=== PATIENT | female | born 1995 | race Caucasian/White ===

== ENCOUNTER 2021-03-22 10:30 | Emergency (ER) | payer OTHER ==
--- NOTE | 2021-03-22 11:33 | EDM.PDOC ---
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, at 9:30a she had epigastric pain that got worse, up to 8/10 for 10 minutes, took no meds for it, was sweaty when pain was the worst, no radiation, no n/v, no other sxs has had 3 previous episodes, most recently 6m ago, pt thinks it may be her GB only med warfarin pt had COVID in Jun with minimal sxs, "like a bad cold" 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 in October, was in [facility] for 20d, in ICU x 8d, had tubes draining both legs, had daily procedures to remove clots 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, has f/u with heme-onc in one year took no meds for pain today, feeling much better now, 2-3/10, epigastrium NT, no RUQ pain/tender Upper Mid-Anterior Abdomen Pain Score (Numeric/FACES): 4 - Related Data Allergies Allergy/AdvReac Type Severity Reaction Status Date / Time acetaminophen [From Vicodin] Allergy Nausea Verified 03/22/21 10:43 hydrocodone [From Vicodin] Allergy Nausea Verified 03/22/21 10:43 Home Meds: Home Meds Ferrous Sulfate [Iron] 325 mg PO BID #100 tablet 03/22/21 [Rx] Warfarin [Coumadin] 5 mg PO DAILY 03/22/21 [History] Past Medical History Cardiovascular History: Reports: Blood Clots/VTE/DVT Social & Family History - Family History Family Medical History: No Pertinent Family History - Tobacco Use Tobacco Use Status *Q: Unknown Ever Used Tobacco - Caffeine Use Caffeine Use: Reports: Coffee ED ROS GENERAL - Review of Systems Review Of Systems: See Below Constitutional: Reports: No Symptoms HEENT: Reports: No Symptoms Respiratory: Reports: No Symptoms Cardiovascular: Reports: No Symptoms Endocrine: Reports: No Symptoms GI/Abdominal: Reports: No Symptoms : Reports: No Symptoms Musculoskeletal: Reports: No Symptoms Skin: Reports: No Symptoms Neurological: Reports: No Symptoms Psychiatric: Reports: No Symptoms Hematologic/Lymphatic: Reports: No Symptoms Immunologic: Reports: No Symptoms ED EXAM, GI/ABD - Physical Exam Exam: See Below Exam Limited By: No Limitations General Appearance: Alert, WD/WN, No Apparent Distress Throat/Mouth: Normal Inspection, Normal Voice, No Airway Compromise Head: Atraumatic, Normocephalic Neck: Normal Inspection, Supple, Non-Tender, Full Range of Motion. No: Lymphade nopathy (R), Lymphadenopathy (L) Respiratory/Chest: No Respiratory Distress, Lungs Clear, Normal Breath Sounds, Chest Non-Tender Cardiovascular: Regular Rate, Rhythm, No Edema, No Murmur GI/Abdominal Exam: Soft, Non-Tender, No Organomegaly, No Distention, Other (nontender to deep palpation at epigastrium and Garcia's point) Extremities: Normal Inspection, Normal Range of Motion, Non-Tender, No Pedal Edema Neurological: Alert, Oriented, CN II-XII Intact, Normal Cognition, Normal Gait, No Motor/Sensory Deficits Psychiatric: Normal Affect, Normal Mood Skin Exam: Warm, Dry, Intact, Normal Color, No Rash Lymphatic: No Adenopathy Course - Vital Signs Last Recorded V/S: Last Vital Signs Temp 36.4 C 03/22/21 10:40 Pulse 81 03/22/21 10:40 Resp 18 03/22/21 10:40 BP 130/91 H 03/22/21 10:40 Pulse Ox 96 03/22/21 10:40 - Orders/Labs/Meds Labs: Laboratory Tests 03/22/21 03/22/21 03/22/21 Range/Units 11:50 11:50 11:50 WBC 8.1 (3.0-10.3) x10-3/uL RBC 4.32 (3.60-5.20) x10(6)uL Hgb 10.2 L (11.4-15.5) g/dL Hct 32.6 L (34.2-48.2) % MCV 75.5 L (76.7-100.5) fL MCH 23.5 L (23.9-33.9) pg MCHC 31.2 L (31.9-34.8) g/dL RDW 16.0 (12.3-16.5) % Plt Count 231 (151-488) x10(3)uL MPV 8.1 (7.1-12.4) fL Neut % (Auto) 78.4 H (30.8-76.2) % Lymph % (Auto) 16.0 L (18.4-52.1) % [place] % (Auto) 4.7 (4.4-15.7) % Eos % (Auto) 0.4 L (0.6-8.1) % Baso % (Auto) 0.5 (0.2-1.5) % Neut # (Auto) 5.7 (1.5-6.3) x10-3/uL Lymph # (Auto) 1.2 (1.0-4.4) x10-3/uL [place] # (Auto) 0.3 (0.3-1.0) x10-3/uL Eos # (Auto) 0.0 (0.0-0.8) x10-3/uL Baso # (Auto) 0.0 (0.0-0.1) x10-3/uL PT 22.5 H (9.0-11.1) sec INR 2.19 H (1.00-1.24) Sodium 140 (135-145) mmol/L Potassium 4.2 (3.5-5.3) mmol/L Chloride 103 (100-110) mmol/L Carbon Dioxide 28 (21-32) mmol/L BUN 18 (7-18) mg/dL Creatinine 0.8 (0.55-1.02) mg/dL Est Cr Clr Drug Dosing 96.73 mL/min Estimated GFR (MDRD) > 60 (>60) BUN/Creatinine Ratio 22.5 H (9-20) Glucose 90 (80-116) mg/dL Calcium 8.7 (8.6-10.2) mg/dL Total Bilirubin 0.2 (0.1-1.3) mg/dL AST 18 (5-25) IU/L ALT 20 (12-36) U/L Alkaline Phosphatase 81 (56-112) IU/L C-Reactive Protein (0.5-0.9) mg/dL Total Protein 8.0 (6.0-8.0) g/dL Albumin 3.4 L (3.5-5.2) g/dL Globulin 4.6 g/dL Albumin/Globulin Ratio 0.7 // Range/Units 11:50 WBC (3.0-10.3) x10-3/uL RBC (3.60-5.20) x10(6)uL Hgb (11.4-15.5) g/dL Hct (34.2-48.2) % MCV (76.7-100.5) fL MCH (23.9-33.9) pg MCHC (31.9-34.8) g/dL RDW (12.3-16.5) % Plt Count (151-488) x10(3)uL MPV (7.1-12.4) fL Neut % (Auto) (30.8-76.2) % Lymph % (Auto) (18.4-52.1) % [place] % (Auto) (4.4-15.7) % Eos % (Auto) (0.6-8.1) % Baso % (Auto) (0.2-1.5) % Neut # (Auto) (1.5-6.3) x10-3/uL Lymph # (Auto) (1.0-4.4) x10-3/uL [place] # (Auto) (0.3-1.0) x10-3/uL Eos # (Auto) (0.0-0.8) x10-3/uL Baso # (Auto) (0.0-0.1) x10-3/uL PT (9.0-11.1) sec INR (1.00-1.24) Sodium (135-145) mmol/L Potassium (3.5-5.3) mmol/L Chloride (100-110) mmol/L Carbon Dioxide (21-32) mmol/L BUN (7-18) mg/dL Creatinine (0.55-1.02) mg/dL Est Cr Clr Drug Dosing mL/min Estimated GFR (MDRD) (>60) BUN/Creatinine Ratio (9-20) Glucose (80-116) mg/dL Calcium (8.6-10.2) mg/dL Total Bilirubin (0.1-1.3) mg/dL AST (5-25) IU/L ALT (12-36) U/L Alkaline Phosphatase (56-112) IU/L C-Reactive Protein 1.5 H (0.5-0.9) mg/dL Total Protein (6.0-8.0) g/dL Albumin (3.5-5.2) g/dL Globulin g/dL Albumin/Globulin Ratio Departure - Departure Time of Disposition: 12:43 Disposition: Home, Self-Care 01 Condition: Good Clinical Impression: Epigastric pain, Hypochromic microcytic anemia - Discharge Information *PRESCRIPTION DRUG MONITORING PROGRAM REVIEWED*: Not Applicable *COPY OF PRESCRIPTION DRUG MONITORING REPORT IN PATIENT FRANKLYN: Not Applicable Prescriptions: Ferrous Sulfate [Iron] 325 mg PO BID #100 tablet Instructions: Biliary Colic, Adult, Heartburn Forms: ED Department Discharge Additional Instructions: It is likely that the pain in your upper mid abdomen is coming from acid in the stomach. However, gallbladder pain (biliary colic) is still a consideration. If you have additional pain, immediately drink liquid antacid 2 tablespoons (30 ml) to see if it helps. Take acetaminophen 500 mg 2 tabs every 6 hours as needed for pain. To replace iron and increase your hemoglobin, take iron 325 mg 1 tab 2 times a day for 3 months. You may take a stool softener at the same time. Return to hospital for a gallbladder ultrasound. See your doctor in 4-5 days for further recommendations. Return to Emergency Department if you fell worse. Sepsis Event Note (ED) - Evaluation Sepsis Screening Result: No Definite Risk - Focused Exam Vital Signs: Vital Signs Temp Pulse Resp BP Pulse Ox 03/22/21 10:40 36.4 C 81 18 130/91 H 96
== END 2021-03-22 13:00 | disposition home or self-care (01) ==
LOC: FB.ED 10:30
DX: D50.9 Iron deficiency anemia, unspecified (principal); R10.13 Epigastric pain; Z86.16 Personal history of COVID-19; Z88.6 Allergy status to analgesic agent; Z88.5 Allergy status to narcotic agent
CPT/HCPCS: 36415; 80053; 85025; 85610; 86140; 99284

== ENCOUNTER 2021-05-08 14:49 | Emergency (ER) | payer OTHER ==
[2021-05-08] MEDS ORDERED: Sodium Chloride 0.9% 10 ML Syringe FLUSH PRN (15:05)
[2021-05-08] MEDS ORDERED: Morphine 2 MG/ML SYRINGE IVPUSH STA (15:08)
[2021-05-08] MEDS ORDERED: Ketorolac 30 MG/ML SDV IVPUSH STA (15:08)
[2021-05-08] MEDS ORDERED: Ondansetron 4 MG/2 ML SDV IVPUSH STA (15:08)
[2021-05-08] MEDS ORDERED: Sodium Chloride 0.9% 1,000 ML IV SCH (15:15)
--- NOTE | 2021-05-08 15:45 | EDM.PDOC ---
ED HPI GENERAL MEDICAL PROBLEM - General Stated Complaint: GALBLADDER Time Seen by Provider: 05/08/21 15:35 Source of Information: Reports: Patient History Limitations: Reports: No Limitations - History of Present Illness INITIAL COMMENTS - FREE TEXT/NARRATIVE: Patient presented to the ED because of an epigastric pain and RUQ pain which started at about 1345. The pain is sharp, throbbing,5/10 with associated N/V x4. There is no diarrhea,constipation or urinary symptoms. - Related Data Allergies Allergy/AdvReac Type Severity Reaction Status Date / Time acetaminophen [From Vicodin] Allergy Nausea Verified 03/22/21 10:43 hydrocodone [From Vicodin] Allergy Nausea Verified 03/22/21 10:43 Home Meds: Home Meds Ferrous Sulfate [Iron] 325 mg PO BID #100 tablet 03/22/21 [Rx] Warfarin [Coumadin] 5 mg PO DAILY 03/22/21 [History] Ondansetron [Zofran ODT] 4 mg PO Q4H PRN #5 tab.dis 05/08/21 [Rx] traMADol [Ultram] 100 mg PO Q8H PRN #15 tab 05/08/21 [Rx] Past Medical History Cardiovascular History: Reports: Blood Clots/VTE/DVT Social & Family History - Family History Family Medical History: No Pertinent Family History - Caffeine Use Caffeine Use: Reports: Coffee ED ROS GENERAL - Review of Systems Review Of Systems: See Below Constitutional: Reports: No Symptoms HEENT: Reports: No Symptoms Respiratory: Reports: No Symptoms Cardiovascular: Reports: No Symptoms Endocrine: Reports: No Symptoms GI/Abdominal: Reports: Abdominal Pain, Nausea, Vomiting : Reports: No Symptoms Musculoskeletal: Reports: No Symptoms Skin: Reports: No Symptoms Neurological: Reports: No Symptoms Psychiatric: Reports: No Symptoms ED EXAM, GI/ABD - Physical Exam Exam: See Below Exam Limited By: No Limitations General Appearance: Alert, No Apparent Distress Ears: Normal External Exam, Normal Canal Nose: Normal Inspection, Normal Mucosa, No Blood Throat/Mouth: Normal Inspection, Normal Lips, Normal Teeth Head: Atraumatic, Normocephalic Neck: Normal Inspection, Supple, Non-Tender, Full Range of Motion Respiratory/Chest: No Respiratory Distress, Lungs Clear, Normal Breath Sounds, No Accessory Muscle Use, Chest Non-Tender Cardiovascular: Normal Peripheral Pulses, Regular Rate, Rhythm, No Edema, No Gallop GI/Abdominal Exam: Normal Bowel Sounds, Soft, No Organomegaly, Other (tenderness over the epigastrium and RUQ) Extremities: Normal Inspection, Normal Range of Motion, Non-Tender, No Pedal Edema Neurological: Alert, Oriented, CN II-XII Intact, Normal Cognition Psychiatric: Normal Affect Skin Exam: Warm Course - Vital Signs Text/Narrative:: Lab result was reviewed and discussed with patient NS 1 L bolus Zofran 4 mg IV x1 Toradol 30 mg IV x1 Zofran 4 mg IV x1 - Orders/Labs/Meds Orders: Active Orders 24 hr Category Date Time Status HCG QUALITATIVE,URINE [URCHEM] Stat Lab 05/08/21 15:30 Ordered UA W/MICROSCOPIC [URIN] Stat Lab 05/08/21 15:05 Ordered Sodium Chloride 0.9% [Normal Saline] 1,000 ml Med 05/08/21 15:15 Active IV ASDIRECTED Sodium Chloride 0.9% [Saline Flush] Med 05/08/21 15:05 Active 10 ml FLUSH ASDIRECTED PRN Saline Lock Insert [OM.PC] Routine Oth 05/08/21 15:05 Ordered Medication Orders Sodium Chloride (Normal Saline) 1,000 mls @ 999 mls/hr IV ASDIRECTED VIR[place]IE Last Admin: 05/08/21 15:24 Dose: 999 mls/hr Documented by: [email or web address] Sodium Chloride (Sodium Chloride 0.9% 10 Ml Syringe) 10 ml FLUSH ASDIRECTED PRN PRN Reason: Keep Vein Open Labs: Laboratory Tests 05/08/21 05/08/21 05/08/21 Range/Units 15:25 15:25 15:25 WBC 7.6 (3.0-10.3) x10-3/uL RBC 4.55 (3.60-5.20) x10(6)uL Hgb 11.8 (11.4-15.5) g/dL Hct 36.1 (34.2-48.2) % MCV 79.4 (76.7-100.5) fL MCH 25.9 (23.9-33.9) pg MCHC 32.6 (31.9-34.8) g/dL RDW 18.4 H (12.3-16.5) % Plt Count 276 (151-488) x10(3)uL MPV 7.5 (7.1-12.4) fL Neut % (Auto) 77.8 H (30.8-76.2) % Lymph % (Auto) 16.5 L (18.4-52.1) % [place] % (Auto) 4.7 (4.4-15.7) % Eos % (Auto) 0.6 (0.6-8.1) % Baso % (Auto) 0.4 (0.2-1.5) % Neut # (Auto) 5.9 (1.5-6.3) x10-3/uL Lymph # (Auto) 1.3 (1.0-4.4) x10-3/uL [place] # (Auto) 0.4 (0.3-1.0) x10-3/uL Eos # (Auto) 0.0 (0.0-0.8) x10-3/uL Baso # (Auto) 0.0 (0.0-0.1) x10-3/uL Sodium 142 (135-145) mmol/L Potassium 4.0 (3.5-5.3) mmol/L Chloride 106 (100-110) mmol/L Carbon Dioxide 29 (21-32) mmol/L BUN 18 (7-18) mg/dL Creatinine 0.8 (0.55-1.02) mg/dL Est Cr Clr Drug Dosing TNP Estimated GFR (MDRD) > 60 (>60) BUN/Creatinine Ratio 22.5 H (9-20) Glucose 95 (80-116) mg/dL Calcium 8.7 (8.6-10.2) mg/dL Total Bilirubin 0.3 (0.1-1.3) mg/dL AST 14 D (5-25) IU/L ALT 22 (12-36) U/L Alkaline Phosphatase 91 (56-112) IU/L Total Protein 8.0 (6.0-8.0) g/dL Albumin 3.5 (3.5-5.2) g/dL Globulin 4.5 g/dL Albumin/Globulin Ratio 0.8 Amylase 48 (25-115) U/L Lipase 101 (73-393) U/L Meds: Medications Generic Name Dose Route Start Last Admin Trade Name Freq PRN Reason Stop Dose Admin Sodium Chloride 1,000 mls @ 999 mls/hr 05/08/21 15:15 05/08/21 15:24 Normal Saline IV 999 mls/hr ASDIRECTED [place]IE Administration Sodium Chloride 10 ml 05/08/21 15:05 Sodium Chloride 0.9% 10 Ml Syringe FLUSH ASDIRECTED PRN Keep Vein Open Discontinued Medications Generic Name Dose Route Start Last Admin Trade Name Freq PRN Reason Stop Dose Admin Ketorolac Tromethamine 30 mg 05/08/21 15:08 05/08/21 15:37 Ketorolac 30 Mg/Ml Sdv IVPUSH 05/08/21 15:09 30 mg NOW STA Administration Morphine Sulfate 2 mg 05/08/21 15:08 05/08/21 15:35 Morphine 2 Mg/Ml Syringe IVPUSH 05/08/21 15:09 2 mg NOW STA Administration Ondansetron HCl 4 mg 05/08/21 15:08 05/08/21 15:31 Ondansetron 4 Mg/2 Ml Sdv IVPUSH 05/08/21 15:09 4 mg NOW STA Administration Departure - Departure Time of Disposition: 16:15 Disposition: Home, Self-Care 01 Condition: Good Clinical Impression: Cholelithiasis - Discharge Information Prescriptions: traMADol [Ultram] 100 mg PO Q8H PRN #15 tab PRN Reason: Pain Ondansetron [Zofran ODT] 4 mg PO Q4H PRN #5 tab.dis PRN Reason: Nausea Instructions: Cholelithiasis, [id number] Additional Instructions: Please read discharge instructions on gallstones Avoid greasy and spicy foods Take tramadol 100 mg every 8 hours as needed for pain Zofran ODT 4 mg every 4 hours as needed for nausea Follow up as needed - My Orders Last 24 Hours: My Active Orders 05/08/21 15:05 UA W/MICROSCOPIC [URIN] Stat Sodium Chloride 0.9% [Saline Flush] 10 ml FLUSH ASDIRECTED PRN Saline Lock Insert [OM.PC] Routine 05/08/21 15:15 Sodium Chloride 0.9% [Normal Saline] 1,000 ml IV ASDIRECTED 05/08/21 15:30 HCG QUALITATIVE,URINE [URCHEM] Stat - Assessment/Plan Last 24 Hours: My Active Orders 05/08/21 15:05 UA W/MICROSCOPIC [URIN] Stat Sodium Chloride 0.9% [Saline Flush] 10 ml FLUSH ASDIRECTED PRN Saline Lock Insert [OM.PC] Routine 05/08/21 15:15 Sodium Chloride 0.9% [Normal Saline] 1,000 ml IV ASDIRECTED 05/08/21 15:30 HCG QUALITATIVE,URINE [URCHEM] Stat
== END 2021-05-08 16:30 | disposition home or self-care (01) ==
LOC: FB.ED 14:49
DX: K80.20 Calculus of gallbladder without cholecystitis without obstruction (principal); Z79.01 Long term (current) use of anticoagulants; Z88.5 Allergy status to narcotic agent; Z88.8 Allergy status to other drugs, medicaments and biological substances
CPT/HCPCS: 36415; 80053; 81001; 81025; 82150; 83690; 85025; 96374; 96375; 99284-25; J1885; J2270; J2405; J7030